=== PATIENT | female | born 2000 | race Caucasian/White ===

== ENCOUNTER 2021-01-18 13:09 | Emergency (ER) | payer SELFPAY ==
[~2021-01-18] VITALS: Ht 170.2 cm; Wt 136.0 kg
[2021-01-18] MEDS ORDERED: MORPHINE SULFATE 4 MG/ML CPJ (NOT FOR IM USE) IV STA (13:29)
[2021-01-18] MEDS ORDERED: ONDANSETRON HCL 4MG/2ML INJ IV STA (13:29)
[2021-01-18] MEDS ORDERED: SODIUM CHLORIDE 0.9% 1,000 ML IV ONE (13:30)
[2021-01-18] MEDS ORDERED: LORAZEPAM 2MG/ML CPJ IV ONE (13:30)
[2021-01-18 14:22] LABS: BASOPHILS % 0.7 % (0.0-2.0); EOSINOPHILS % 0.9 % (0.0-5.0); HEMATOCRIT. 43.5 % (36.0-48.0); HEMOGLOBIN. 14.5 g/dL (12.0-16.0); LYMPHOCYTES % 38.4 % (20.0-50.0); MEAN CORPUSCULAR VOLUME 83.8 fL (81.0-99.0); MEAN PLATELET VOLUME 7.7 fl (7.4-10.4); MONOCYTES % 3.9 % (2.0-8.0); NEUTROPHILS % 56.1 % (40.0-76.0); PLATELET 363 x1000/uL (130-400); RED BLOOD CELL COUNT 5.19 mill/uL (4.2-5.4); RED CELL DISTRIBUTION WIDTH 13.2 % (11.6-14.6)
[2021-01-18 14:25] LABS: CHLORIDE 107 mEq/L (98-107)
[2021-01-18 14:30] LABS: PROTHROMBIN TIME 10.4 sec (9.6-11.0)
[2021-01-18 14:31] LABS: HCG SCREEN NEGATIVE
[2021-01-18 15:02] VITALS: BP 137/81
[2021-01-18] MEDS ORDERED: IOHEXOL-300 100 ML BOTTLE ONE (16:15)
[2021-01-18] MEDS ORDERED: HYDR-4346 MT (16:27)
[2021-01-18] MEDS ORDERED: IBUP-2028 MT (16:27)
[2021-01-18] MEDS ORDERED: METF-414 MT (16:27)
== END 2021-01-18 17:46 | disposition home or self-care (01) ==
LOC: ER 13:09
DX: M54.89 Other dorsalgia (principal); R07.89 Other chest pain; M54.2 Cervicalgia; G89.11 Acute pain due to trauma; R10.9 Unspecified abdominal pain; F43.0 Acute stress reaction; F41.9 Anxiety disorder, unspecified; R73.9 Hyperglycemia, unspecified; V49.49XA Driver injured in collision with other motor vehicles in traffic accident, initial encounter; Y93.89 Activity, other specified; Y92.410 Unspecified street and highway as the place of occurrence of the external cause
CPT/HCPCS: 36415; 71260; 74177; 80053; 83690; 84484; 84703; 85025; 85610; 93005; 96361; 96374; 96375; 99285; J2060; J2270; J2405; J7030; Q9967; Z7610